=== PATIENT | male | born 1955 | race Caucasian/White ===

== ENCOUNTER 2021-07-07 13:59 | Outpatient (CLI) | payer OTHER | END 2021-07-07 14:00 | disposition home or self-care (01) | LOC: BICMRI 13:59 | PROVIDERS: ATTEND Specialist | DX: M51.17 Intervertebral disc disorders with radiculopathy, lumbosacral region (principal); M48.061 Spinal stenosis, lumbar region without neurogenic claudication | CPT/HCPCS: 72148 ==

== ENCOUNTER 2022-03-23 10:48 | Outpatient (CLI) | payer BC | END 2022-03-23 10:49 | disposition home or self-care (01) | LOC: MRI 10:48 | PROVIDERS: ATTEND Orthopaedic Surgery | DX: M23.91 Unspecified internal derangement of right knee (principal); S83.241A Other tear of medial meniscus, current injury, right knee, initial encounter; M67.961 Unspecified disorder of synovium and tendon, right lower leg ==

== ENCOUNTER 2022-12-26 07:19 | Outpatient (CLI) | payer BC | END 2022-12-26 07:20 | disposition home or self-care (01) | LOC: BICCT 07:19 | PROVIDERS: ATTEND Family Medicine | DX: Z12.2 Encounter for screening for malignant neoplasm of respiratory organs (principal); F17.210 Nicotine dependence, cigarettes, uncomplicated | CPT/HCPCS: 71271 ==

== ENCOUNTER 2024-04-06 07:05 | Outpatient (CLI) | payer BC | END 2024-04-06 07:06 | disposition home or self-care (01) | LOC: BICCT 07:05 | PROVIDERS: ATTEND Family Medicine | DX: Z12.2 Encounter for screening for malignant neoplasm of respiratory organs (principal); F17.210 Nicotine dependence, cigarettes, uncomplicated | CPT/HCPCS: 71271 ==